=== PATIENT | female | born 1950 | race African-American/Black ===

== ENCOUNTER → 2016-05-05 | Outpatient (CLI) | payer MEDICARE, BC ==
--- NOTE | 2016-05-05 13:02 | KCIC ---
CHEST, TWO VIEWS, 05/05/2016: History: Chest pain The heart size and pulmonary vascularity are normal. There is mild tortuosity of the thoracic aorta. No pulmonary infiltrates are seen. There is no evidence of pleural fluid. There is a mild thoracic scoliosis with moderate scattered marginal spurs. IMPRESSION: No acute cardiopulmonary abnormality is detected. Electronically signed by: Dwayne Kellogg MD (May 05, 2016 13:00:28)
== END | disposition home or self-care (01) ==
LOC: KCIC 10:15
PROVIDERS: ATTEND Family Medicine
DX: R07.9 Chest pain, unspecified (principal)
CPT/HCPCS: 71020

== ENCOUNTER → 2016-07-22 | Outpatient (CLI) | payer MEDICARE, BC ==
--- NOTE | 2016-07-22 10:53 | KCIC ---
Examination: 2 views of the left shoulder and left humerus History history of left arm pain COMPARISON: None available FINDINGS: Moderate degenerative loss and fluid in the glenohumeral joint. The humerus head appears slightly subluxed inferiorly in relation to the glenoid on the AP view however on the lateral view the humeral head appears within the glenoid.. Moderate size osteophyte formation identified arising from the inferior aspect of the humerus head. There is no acute fracture identified. There is minimal cortical prominence in the mid shaft of the humerus probably physiological. IMPRESSION: 1. The humerus head appears slightly subluxed inferiorly in relation to the glenoid on the AP view however on the lateral view the humeral head appears within the glenoid. This could be due to positioning or pseudosubluxation or subluxation. Correlate clinically. 2. There is minimal cortical prominence in the mid shaft of the humerus probably physiological. If there is pain in this region recommend MRI for further evaluation. 3. Moderate degenerative changes glenohumeral joint. Electronically signed by: Danilo Caldera MD (07/22/2016 10:49 AM)
== END | disposition home or self-care (01) ==
LOC: KCIC 09:03
PROVIDERS: ATTEND Family Medicine
DX: M25.512 Pain in left shoulder (principal); M79.602 Pain in left arm
CPT/HCPCS: 73030; 73060

== ENCOUNTER → 2017-01-27 | Outpatient (CLI) | payer MEDICARE, BC ==
--- NOTE | 2017-01-27 11:49 | KCIC ---
CHEST PA LATERAL History: Secondhand smoke exposure. Cough.. Comparison: May 05, 2016. Findings: Cardiomediastinal silhouette is within normal limits. No focal airspace consolidation. No pneumothorax identified. No evidence of pleural effusion. Mild thoracolumbar scoliosis. Mildly tortuous aorta. Impression: Stable exam, no evidence of active disease in the chest. Electronically signed by: Gallo Messina MD (01/27/2017 11:46 AM) [facility]
== END | disposition home or self-care (01) ==
LOC: KCIC 09:24
PROVIDERS: ATTEND Family Medicine
DX: R05 Cough (principal); Z77.22 Contact with and (suspected) exposure to environmental tobacco smoke (acute) (chronic)
CPT/HCPCS: 71020

== ENCOUNTER → 2017-02-03 | Outpatient (CLI) | payer MEDICARE, BC ==
--- NOTE | 2017-02-03 08:51 | RAD ---
DATE: 02/03/2017 EXAM: DIGITAL SCREEN RT W/CAD HISTORY: Screening study. History of left mastectomy for breast cancer. COMPARISON: 01/27/2016 This study was interpreted with the benefit of Computerized Aided Detection (CAD). The breast parenchyma is heterogeneously dense, which could reduce sensitivity of mammography. Breast parenchyma level C. FINDINGS: Two Digital MLO and CC mammograms of the right breast were obtained. Comparison study is dated 01/27/2016. The right breast parenchyma is heterogeneously dense which can obscure a lesion on mammography. Benign-appearing calcifications are seen scattered throughout the right breast. Small well-defined benign-appearing nodules are seen within the right breast, unchanged. No spiculated mass is seen. No malignant appearing calcification or area of architectural distortion is noted. Since the previous examination there has been no significant interval change. IMPRESSION: BI-RADS Category 2 benign findings. There is no mammographic evidence of malignancy involving the right breast. Routine yearly screening mammography is recommended for follow-up. BI-RADS CATEGORY: 2 BENIGN FINDING(S) RECOMMENDED FOLLOW-UP: 12M 12 MONTH FOLLOW-UP PQRS compliance statement: Patient information was entered into a reminder system with a target due date 02/03/2018 for the next mammogram. Mammography is a sensitive method for finding small breast cancers, but it does not detect them all and is not a substitute for careful clinical examination. A negative mammogram does not negate a clinically suspicious finding and should not result in delay in biopsying a clinically suspicious abnormality. "Our facility is accredited by the [employer] Mammography Program."
== END | disposition home or self-care (01) ==
LOC: MAMMO 07:58
PROVIDERS: ATTEND Internal Medicine Hematology & Oncology
DX: Z12.31 Encounter for screening mammogram for malignant neoplasm of breast (principal); Z85.3 Personal history of malignant neoplasm of breast; Z90.12 Acquired absence of left breast and nipple
CPT/HCPCS: G0202; 77067

== ENCOUNTER → 2017-08-02 | Day surgery (SDC) | payer MEDICARE, BC ==
[~2017-08-02] MED LIST: LIDOCAINE 1% PF 2 ML VIAL. ID; LIDOCAINE 2% PF Vial for OR 5 ML VIAL.; MORPHINE SULFATE 2 MG/ML DISP.SYRIN. IV; ONDANSETRON PF 4 MG/2 ML VIAL. IV; PROCHLORPERAZINE 10 MG/2 ML VIAL. IV; PROPOFOL 20 ML IV; fentaNYL PF VIAL 100 MCG/2 ML VIAL IV
[2017-08-02] MEDS: IV RINGERS,LACTATED 1000ML 1,000 ML IV (07:45)
== END | disposition home or self-care (01) ==
LOC: ENDOS 07:14
DX: Z12.11 Encounter for screening for malignant neoplasm of colon (principal); K57.30 Diverticulosis of large intestine without perforation or abscess without bleeding; I10 Essential (primary) hypertension; M19.90 Unspecified osteoarthritis, unspecified site; Z88.6 Allergy status to analgesic agent; Z90.12 Acquired absence of left breast and nipple; Z79.899 Other long term (current) drug therapy; Z98.51 Tubal ligation status
CPT/HCPCS: 45378; G0121; J2001; J2704

== ENCOUNTER → 2019-02-13 | Outpatient (CLI) | payer MEDICARE, BC ==
[2017-08-02 08:52] VITALS: BP 118/64
[~2019-02-13] MED LIST changes: +AMLO5TAB10 PO; +CONTRAST GIVEN. MC PRN; +IOHEXOL 240 MG/ML 50ML VIAL. PO ONE; +IOHEXOL 300 MG/ML 100ML VIAL. IV ONE; -LIDOCAINE 1% PF 2 ML VIAL. ID; -LIDOCAINE 2% PF Vial for OR 5 ML VIAL.; -MORPHINE SULFATE 2 MG/ML DISP.SYRIN. IV; -ONDANSETRON PF 4 MG/2 ML VIAL. IV; -PROCHLORPERAZINE 10 MG/2 ML VIAL. IV; -PROPOFOL 20 ML IV; +VIT1TABL2 PO; +ZOLP10TA4 PO; -fentaNYL PF VIAL 100 MCG/2 ML VIAL IV
--- NOTE | 2019-02-13 14:47 | RAD ---
CT CHEST ABD PELVIS W/CONTRAST Clinical Indication: Left breast cancer COMPARISON: Chest 01/27/2017 TECHNIQUE: Multiple contiguous axial images were obtained throughout the chest, abdomen, and pelvis with the use of IV contrast. Axial images were reformatted into coronal and sagittal planes. 60 mL Omnipaque 300 was administered. One or more of the following dose reduction techniques were utilized: Automated exposure control (AEC), Adjustment of mA and/or kV according to patient size, Use of iterative reconstruction technique such as ASiR, CT scan done according to ALARA and image gently/image wisely. Findings: The thyroid is symmetric. There is no axillary, mediastinal, or hilar adenopathy. The thoracic aorta diameter is normal. Cardiomegaly. Coronary artery atherosclerotic disease. There is no pericardial effusion. The central airways are patent. Bibasilar dependent and subsegmental atelectasis. No confluent consolidation. Indeterminate left upper lobe nodule measuring 0.3 cm (series 2 image 21). No pleural effusion is observed. There is no pneumothorax. Hepatic steatosis. The liver, gallbladder, spleen, pancreas, and adrenal glands are otherwise unremarkable. The kidneys are unremarkable. There is no significant mesenteric or retroperitoneal adenopathy identified. There is no evidence of free intraperitoneal fluid or pneumoperitoneum. Colonic diverticulosis. Mild aortoiliac atherosclerotic disease. The bladder and distal ureters are unremarkable. There is no significant pelvic ascites. No significant iliac or inguinal adenopathy is identified. Degenerative changes of the spine. No aggressive osseous lesions. Left mastectomy and breast prosthesis. IMPRESSION: 1. No evidence of metastatic disease in the chest, abdomen, or pelvis. No mass or lymphadenopathy. 2. Indeterminate left upper lobe nodule measuring 0.3 cm. Attention on follow-up imaging in 3 months time or per clinical protocol. 3. Diverticulosis. Electronically signed by: Denny Haddad MD (02/13/2019 2:44 PM) [id number]
--- NOTE | 2019-02-13 17:24 | RAD ---
Examination: BONE SCAN WHOLE BODY History: Breast cancer Comparison/Correlation: 02/13/2019 CT chest abdomen pelvis with contrast Findings: 26 mCi technetium 99m MDP was intravenously administered for purposes of total body bone scintigraphy. Mild uptake involving the upper thoracic spine corresponding to degenerative changes are present. Uptake involving upper lumbar spine in the lower lumbar spine corresponding to degenerative changes noted. Uptake involving the left sacroiliac joint corresponding to significant sacroiliac joint degenerative changes evident. Uptake involving the knees appear to represent degenerative change. Kidneys are visualized. Urinary bladder contains radiotracer. Impression: No abnormal reticulation of radiotracer to suggest osteoblastic metastatic disease. No suspicious photopenic regions. Electronically signed by: David Kim MD (02/13/2019 5:21 PM) [facility]
== END | disposition home or self-care (01) ==
LOC: NM 08:51
PROVIDERS: ATTEND Internal Medicine Hematology & Oncology
DX: C50.412 Malignant neoplasm of upper-outer quadrant of left female breast (principal); K57.30 Diverticulosis of large intestine without perforation or abscess without bleeding; M47.815 Spondylosis without myelopathy or radiculopathy, thoracolumbar region; J98.11 Atelectasis; I25.10 Atherosclerotic heart disease of native coronary artery without angina pectoris; I51.7 Cardiomegaly; Z17.0 Estrogen receptor positive status [ER+]
CPT/HCPCS: 71260; 74177; 78306; A9503; Q9967

== ENCOUNTER → 2019-04-30 | Outpatient (CLI) | payer MEDICARE, BC ==
[2017-08-02 08:52] VITALS: BP 118/64
[~2019-04-30] MED LIST changes: -CONTRAST GIVEN. MC PRN; -IOHEXOL 240 MG/ML 50ML VIAL. PO ONE; -IOHEXOL 300 MG/ML 100ML VIAL. IV ONE
--- NOTE | 2019-04-30 16:23 | RAD ---
EXAM: CT Chest without IV contrast INDICATION: Lung nodule TECHNIQUE: Multi-detector row CT images were acquired from the thoracic inlet through the upper abdomen without the use of IV contrast. Sagittal and coronal images were acquired from the transaxial data. All CT scans performed at this facility utilize dose optimization techniques as appropriate to the exam, including the following: Automated exposure control and adjustment of the mA and/or KV according to patient size (this includes techniques or standardized protocols for targeted exams where dose is indication/reason for exam). COMPARISON: Chest, abdomen and pelvis CT of 02/13/2019, whole body bone scan of 02/13/2019 FINDINGS: The absence of IV contrast limits evaluation of soft tissue pathology. CARDIOVASCULAR: Unremarkable MEDIASTINUM & ZOHRA: No adenopathy or masses. LUNGS: Stable 3 mm peripheral left upper lobe pulmonary nodule (image 99 at 305 on axial series 8). Stable cluster of nodules in the peripheral right middle lobe, largest measuring 2 mm on image 158 of axial series 8, abutting the pleura. Stable symmetric calcified peripheral right lower lobe pulmonary nodule (image 197 of series 8). PLEURAL SPACE: No pleural effusions or pneumothorax. OSSEOUS & SOFT TISSUE: Left mastectomy with implant reconstruction. Partially sclerotic lesion in the superior endplate of L1 best demonstrated on the last image on axial series 8 (image 305 of 305) and on coronal image 54 of series 5. ABDOMEN: The visualized portions of the upper abdomen are unremarkable. IMPRESSION: 1. Stable sub-5 mm pulmonary nodules. Fleischner Society guidelines for multiple pulmonary nodules less than 6 mm in diameter is optional CT in12 months in high-risk patients and no routine follow-up in low-risk patients. 2. Sclerotic focus at the inferior endplate of partially imaged L1 vertebra, indeterminate. This could represent a Schmorl's node. A small finding was present on the previous examination and was compatible with early changes of a Schmorl's node but a follow-up abdomen and pelvis CT may be helpful in confirming stability of the finding absence of additional findings of potential concern. Electronically signed by: Jayden Barrera MD (04/30/2019 4:21 PM) [id number]
== END | disposition home or self-care (01) ==
LOC: CT 13:10
PROVIDERS: ATTEND Internal Medicine Hematology & Oncology
DX: R91.8 Other nonspecific abnormal finding of lung field (principal); Z90.12 Acquired absence of left breast and nipple; Z98.82 Breast implant status
CPT/HCPCS: 71250

== ENCOUNTER → 2020-02-11 | Outpatient (CLI) | payer MEDICARE, BC ==
[2017-08-02 08:52] VITALS: BP 118/64
[~2020-02-11] MED LIST changes: +AMLO-186 PO; -AMLO5TAB10 PO
--- NOTE | 2020-02-13 10:02 | RAD ---
DATE: 02/11/2020 1:13 PM EXAM: MAMMO VIVIAN SCREEN RT HISTORY: Screening Personal history of breast cancer 2006, status post left mastectomy. History of right breast reduction 1992. COMPARISON: 02/06/2019, 02/02/2018 Right CC and MLO views were performed. Right breast tomosynthesis was performed in CC and MLO projections. This study was interpreted with the benefit of Computerized Aided Detection (CAD). FINDINGS: Breast Density: SCATTERED The breast parenchyma shows scattered fibroglandular densities. Breast parenchyma level B No suspicious masses, microcalcifications or architectural distortion is present to suggest malignancy. The visualized axilla is unremarkable. IMPRESSION: No mammographic evidence of malignancy. BI-RADS CATEGORY: 1 NEGATIVE RECOMMENDED FOLLOW-UP: 12M 12 MONTH FOLLOW-UP Annual screening mammography is recommended, unless clinically indicated sooner based on symptoms or change in physical exam. PQRS compliance statement: Patient information was entered into a reminder system with a target due date for the next mammogram. Mammography is a sensitive method for finding small breast cancers, but it does not detect them all and is not a substitute for careful clinical examination. A negative mammogram does not negate a clinically suspicious finding and should not result in delay in biopsying a clinically suspicious abnormality. "Our facility is accredited by the [employer] Mammography Program."
== END ==
LOC: MAMMO 13:11
PROVIDERS: ATTEND Internal Medicine Hematology & Oncology
DX: Z12.31 Encounter for screening mammogram for malignant neoplasm of breast (principal)
CPT/HCPCS: 77061; 77063; 77067

== ENCOUNTER → 2021-02-11 | Outpatient (CLI) | payer MEDICARE, BC ==
[2017-08-02 08:52] VITALS: BP 118/64
--- NOTE | 2021-02-11 16:33 | RAD ---
EXAM: Right breast digital screening mammogram with tomosynthesis. HISTORY: 70-year-old female with a history of left breast cancer, status post left mastectomy, presen ts for screening mammography. TECHNIQUE: Full-field digital craniocaudal and mediolateral oblique 2D and 3D tomosynthesis images of the right breast are obtained for evaluation. Computer aided detection was applied. COMPARISON: 02/06/2019, 02/02/2018 BREAST PARENCHYMAL DENSITY: Level C - Heterogeneously dense. FINDINGS: There is no new suspicious mass, microcalcification or region of architectural distortion. There are multiple benign calcifications within the right breast, several which are likely associated with degenerating fibroadenomas. There are stable small benign circumscribed nodules within the righ t breast. IMPRESSION: BI-RADS Category 2: Benign finding(s). RECOMMENDATION: Annual mammography is recommended. If your mammogram demonstrates that you have dense breast tissue, which could hide abnormalities, and if you have other risk factors for breast cancer that have been identified, you might benefit from s upplemental screening tests that may be suggested by your ordering physician. Dense breast tissue, i n and of itself, is a relatively common condition. This information is not provided to cause undue c oncern, but rather to raise your awareness and to promote discussion with your physician regarding th e presence of other risk factors, in addition to dense breast tissue. A report of your mammography re sults will be sent to you and your physician. You should contact your physician if you have any ques tions or concerns regarding this report. Mammography is a sensitive method for finding small breast cancers, but it does not detect them all a nd is not a substitute for careful clinical examination. A negative mammogram does not negate a clin ically suspicious finding and should not result in delay in biopsying a clinically suspicious abnorma lity. PQRS compliance statement - Patient information was entered into a reminder system with a target due date for the next mammogram. "Our facility is accredited by the [employer] Mammography Program." Electronically signed by: Lauren Pinto MD (02/11/2021 4:30 PM) [id number]
== END ==
LOC: MAMMO 14:43
PROVIDERS: ATTEND Internal Medicine Hematology & Oncology
DX: Z12.31 Encounter for screening mammogram for malignant neoplasm of breast (principal)
CPT/HCPCS: 77063; 77067